=== PATIENT | female | born 1975 | race Caucasian/White ===

== ENCOUNTER 2024-03-17 16:26 | Emergency (ER) | payer OTHER, SELFPAY ==
[2024-03-17 16:32] VITALS: BP 141/96
[2024-03-17 16:54] VITALS: BMI 23.4
--- NOTE | 2024-03-17 19:11 | ED.GENMED ---
History of Present Illness
General
Chief Complaint: Head Injury
Source: patient
Exam Limitations: none
Time Seen by Provider: 03/17/24 16:49
Nursing documentation reviewed up to this point in time: agreed with
Travel History
Have you had any contact with someone who has COVID-19?: No
Do you have any symptoms of coronavirus? Fever > 100 degrees, chills, cough, shortness of breath, sore throat, loss of taste or smell, muscle aches, or headache?: No
History of Present Illness
History of Present Illness:
Patient hit her head on swing 2 times this afternoon. 2nd time her daughter reports patient lost consciousness. Brought to ED for eval She reports head pain and not feeling right. +nausea, no vomiting.
Past History
Past History
ED Past Medical History: Other (migraines)
Review of Systems
Review of Systems
Allergies reviewed?: Yes
All Other Systems: ROS reviewed and negative except as documented in HPI and ROS
Constitutional: Reports no symptoms
ABD/GI: Reports nausea
Musculoskeletal: Reports no symptoms
Skin: Reports no symptoms
Neurological: Reports dizzy and headache
Psychiatric: Reports no symptoms
Phy Exam
General Physical Exam
General Presentation: well appearing
General age: appears stated age
General Skin: warm and dry
General Habitus: normal
General Mental: alert
ENT Exam
ENT Exam: EOMI and TM's normal
Eye Exam
Eye Exam: PERRL, EOMI and globe normal
Neurological Exam
Neurological Exam: alert, oriented x3, CN II-XII intact, no motor deficits, no sensory deficits, speech normal and normal gait
Demetria Coma Scale
Eye Opening: Spontaneous
Verbal Response: Oriented
Motor Response: Obeys Commands
GCS Total Score: 15
Musculoskeletal Exam
Musculoskeletal Exam: full ROM and neuro vasc intact
Skin Exam
Skin Exam: normal color, warm/dry and no rash
Psychiatric Exam
Psychiatric Exam: normal mood/affect
Course
Orders/Labs/Results
Orders:
Orders
03/17/24 17:19
CT Head W/o Iv Contrast Urgent
Comment:
Reason For Exam: trauma, +LOC
Vital Signs
Initial and Last Documented VS:
Initial Vital Signs
Temp Pulse Resp BP Pulse Ox
98.2 F 88 18 141/96 99
03/17/24 16:32 03/17/24 16:32 03/17/24 16:32 03/17/24 16:32 03/17/24 16:32
Last Documented Vital Signs
Temp Pulse Resp BP Pulse Ox
98.2 F 88 18 141/96 99
03/17/24 16:32 03/17/24 16:32 03/17/24 16:32 03/17/24 16:32 03/17/24 16:32
*Radiology
Radiology exam reviewed: radiology read reviewed
*Pulse Oximetry
Patient hypoxic: no
*Critical Care Note
Total Time (30-74mins, 75-104mins- exclusive of procedures): Not Applicable
ED Attending Note
-
Portions of this chart may have been created with voice recognition software.� Occasional wrong word or��sound alike� substitutions may have occurred due to the inherent limitations of voice recognition software.
Discharge Plan
Departure
Patient Disposition: Home (Routine Discharge)
Date of Disposition: 03/17/24
Time of Disposition: 19:09
Patient with high blood pressure during this ER visit?: No
Condition: Good
Covid-19: Not Applicable
Discharge Problem:
Head injury
Instructions: Head Injury in Adults (DC)
Referrals:
Junior Jerome MD [Family Provider] - Follow up in 2-3 days
Interventions
Interventions:
*Risk Screen - Suicide Last Done: 03/17/24 16:54
*General Assessment Last Done: 03/17/24 16:32
*Neglect/Abuse Screening Last Done: 03/17/24 16:54
ED- Fall Risk Assessment Last Done: 03/17/24 16:54
*ED COVID-19 Vaccine History Last Done: 03/17/24 16:32
*Nursing Disposition Last Done: 03/17/24 19:11
ED- Neurological Assessment Last Done: 03/17/24 16:54
ED-Skin Assessment Last Done: 03/17/24 16:54
Discharge Date and Time
Print Language: WALLISIAN
== END 2024-03-17 19:52 | disposition home or self-care (01) ==
LOC: EMR 16:26
PROVIDERS: EMERGENCY PHYSICIAN Emergency Medicine; FAMILY PHYSICIAN Family Medicine
DX: S09.90XA Unspecified injury of head, initial encounter (principal); R42 Dizziness and giddiness; R11.0 Nausea; W22.8XXA Striking against or struck by other objects, initial encounter
CPT/HCPCS: 99284; 70450